=== PATIENT | male | born 1965 | race Caucasian/White ===

== ENCOUNTER → 2023-08-21 13:16 | Outpatient (REF) | payer OTHER, SELFPAY | LOC: RAD 13:16 | PROVIDERS: ATTENDING PHYSICIAN Student in an Organized Health Care Education/Training Program; FAMILY PHYSICIAN Family Medicine | DX: R05.3 Chronic cough (principal) | CPT/HCPCS: 71046 ==

== ENCOUNTER 2024-06-24 19:33 | Emergency (ER) | payer OTHER, SELFPAY ==
[2024-06-24 19:39] VITALS: BP 168/96
--- NOTE | 2024-06-24 21:26 | ED.GENMED ---
History of Present Illness
General
Chief Complaint: DVT/Possible Blood Clot
Source: patient
Exam Limitations: none
Time Seen by Provider: 06/24/24 21:08
Nursing documentation reviewed up to this point in time: agreed with
History of Present Illness
History of Present Illness:
pt is a 58 y/o m
h/o eczema on dupixant
htn, hld, hypothyroid
here with redness, swellign, pain in his R calf which has spread to thigh
started about 1 week ago
and was more mild
now feels cord going up leg
he has also had edema in the calf, pitting
no cp, sob, fever, chills, numbness
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
never had diagnosed DVT
has done some traveling but nothing longer than 3 hours recently
Past History
Past History
ED Past Medical History: Other (eczema)
Social History
Tobacco: Non-smoker
Alcohol: Occasional
Drug: None
Personal:
Living: with family
Employment: Employed
Review of Systems
Review of Systems
Allergies reviewed?: Yes
All Other Systems: Not applicable
Phy Exam
Physical Exam
Physical Exam:
GENERAL: Alert , in no apparent distress
CARDIAC: Regular rate and rhythm . pulse normal
LUNGS: Clear breath sounds bilaterally, no acute respiratory distress, no wheezes/rales/rhonchi
NEUROLOGICAL: Alert and oriented, no focal neuro deficits
SKIN: Warm and dry, skin intact.
redness warmth cord like in the upper calf and behind knee and into thigh
slightly tender
MUSCULOSKELETAL: lower leg edema pitting
normla ROM knee and ankle
senesation itnact
PSYCH: Normal and appropriate interaction.
Course
Orders/Labs/Results
Orders:
Orders
06/24/24 19:37
Legs, Right US [US Periph Venous LOWER Ext RT] Urgent
Comment:
Reason For Exam: r/o DVT
06/24/24 21:26
Apixaban [Eliquis] 10 mg PO NOW STA
Vital Signs
Initial and Last Documented VS:
Initial Vital Signs
Temp Pulse Resp BP Pulse Ox
36.4 C 94 16 168/96 97
06/24/24 19:39 06/24/24 19:39 06/24/24 19:39 06/24/24 19:39 06/24/24 19:39
Last Documented Vital Signs
Temp Pulse Resp BP Pulse Ox
36.4 C 94 16 168/96 97
06/24/24 19:39 06/24/24 19:39 06/24/24 19:39 06/24/24 19:39 06/24/24 19:39
MDM/Problems Addressed
Differential Diagnosis Includes:
superficial thrombophlebitis, dvt
MDM/Problems Addressed:
58 y/o M
history says DVT in the past but it was superficial thrombophlebitis, resolved
does sit a lot during work
but is active other times
no recent surgery or travel
edema in the RLE with palpable cord and redness/warmth calf and behind knee and into thigh x 4-5 days already tried aspirin an dwarm compressses
normal pulse sensation
US shows gretaer saphenous thrombosis
this is part of sueprficial vein system but givne extension on asa for 5 days, feel that it is worth anticoagulation
pt has F/U with pcp
*Critical Care Note
Total Time (30-74mins, 75-104mins- exclusive of procedures): Not Applicable
ED Attending Note
-
Portions of this chart may have been created with voice recognition software.� Occasional wrong word or��sound alike� substitutions may have occurred due to the inherent limitations of voice recognition software.
Discharge Plan
Departure
Patient Disposition: Home (Routine Discharge)
Date of Disposition: 06/24/24
Time of Disposition: 21:33
Patient with high blood pressure during this ER visit?: No
Condition: Fair
Covid-19: Not Applicable
Discharge Problem:
Thrombosis of right saphenous vein
Instructions: Superficial vein phlebitis and thrombosis, BLOOD PRESSURE
Prescriptions:
New
Eliquis DVT-PE Treat 30D Start 5 mg (74 tabs) tablets,dose pack
See Rx Instructions .ROUTE .COMPLEX Qty: 74 0RF
Rx Instructions:
orally per package directions
Activity Restrictions/Additional Instructions:
You have a clot in your greater saphenous vein which is part of the superficial venous system however with extension on the aspirin and the warm compresses and going to start you on anticoagulation. I will defer to your family doctor whether they
want to discontinue this if you have resolution of the clot. You should take Eliquis twice a day 10 mg for the first week and then 5 mg twice a day. I gave you a trial pack. For further prescriptions you can see your family doctor. Return for
chest pain or shortness of breath or any severe worsening of symptoms like leg numbness or tingling, foot drop, pain, worsening redness etc.
Make sure to be very careful to try to avoid head injury. Should you have any significant trauma you need to be evaluated. If you start bleeding from any location you should be seen
Interventions
Interventions:
*Risk Screen - Suicide Last Done: 06/24/24 19:42
*Neglect/Abuse Screening Last Done: 06/24/24 19:42
Discharge Date and Time
Print Language: SLOVAK
[2024-06-24] MEDS: ELIQUIS 10 MG PO (21:59)
[2024-06-24 22:20] VITALS: BP 141/82
== END 2024-06-24 22:21 | disposition home or self-care (01) ==
LOC: EMR 19:33
PROVIDERS: EMERGENCY PHYSICIAN Emergency Medicine; FAMILY PHYSICIAN Family Medicine
DX: I82.811 Embolism and thrombosis of superficial veins of right lower extremity (principal); R22.41 Localized swelling, mass and lump, right lower limb; E03.9 Hypothyroidism, unspecified; E78.00 Pure hypercholesterolemia, unspecified; I10 Essential (primary) hypertension; Z79.01 Long term (current) use of anticoagulants; Z86.718 Personal history of other venous thrombosis and embolism
CPT/HCPCS: 99284; 93971